=== PATIENT | female | born 1960 | race Hispanic/Latino ===

== ENCOUNTER → 2024-09-28 | Outpatient (CLI) | payer OTHER, BC ==
[~2024-09-28] MED LIST: ASPI-1197 PO; ATOR-2 PO; AURYXIA PO; CARV12.511 PO; CLOP75TA32 PO; DOCU-116 PO; DULO60CA64 PO; FERS325 PO; FOLI0.8T22 PO; FURO80TA3 PO; GABA300C PO; INSU100C6 SQ; INSU100V12 SQ; ISOS120T14 PO; LORA10TA7 PO; METO10TA8 PO; NIFE-39 PO; NITR0.4T50 SL; ONDA-243 PO; SACU1TAB7 PO; SPIR100T5 PO
[2024-09-28 15:39] LABS: ALBUMIN 2.6 g/dL (3.5-5.0); BILIRUBIN,TOTAL 0.3 mg/dL (0.2-1.0); POTASSIUM 4.1 mmol/L (3.5-5.1); TOTAL PROTEIN, SERUM 7.3 g/dL (6.0-8.3)
[2024-09-28 15:40] LABS: CREATININE 10.2 mg/dL (0.5-1.0)
== END | disposition home or self-care (01) ==
LOC: LAB 14:19
PROVIDERS: ATTEND Internal Medicine Cardiovascular Disease
DX: R07.89 Other chest pain (principal)
CPT/HCPCS: 36415; 80053

== ENCOUNTER → 2024-09-29 | Outpatient (CLI) | payer OTHER, BC ==
[~2024-09-29] MED LIST changes: +IOHEXOL 350 MG/ML 100ML INFUS..BTL IV ONE; +metoPROLOL tartRATE 1 MG/ML 5ML VIAL IV ONE
--- NOTE | 2024-09-29 11:57 | HMCIMG ---
CT CARDIAC ANGIO W/CONT. CCTA REASON: CHEST PAIN COMPARISON: None TECHNIQUE: Images are obtained through the heart in the axial plane before and during bolus IV contrast infusion, 100 cc Omnipaque 350. 2-D and 3-D multiplanar reconstruction images were then performed. The injection had to be repeated once due to motion artifact on the first sequence, total contrast volume was 200 cc. FINDINGS: This dictation is for the noncardiac findings only. Cardiac and coronary artery findings are reported separately. Visualized portions of the lungs are clear. There is normal-appearing pulmonary interstitium. There is no hilar or mediastinal lymphadenopathy. Chest wall structures appear unremarkable. IMPRESSION: 1. Unremarkable noncardiac portions of CT cardiac angiography.
--- NOTE | 2024-10-07 15:34 | CARDIOLOGY ---
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 A dedicated, limited window, coronary imaging protocol was used, with single breath-hold, retrospective ECG gating, and automated arrhythmia rejection. 100 cc of low osmolar contrast agent: Omnipaque 350 was delivered via a 18-gauge IV catheter in the right antecubital fossa, using a power injector and followed by 60 cc of normal saline bolus as a chaser. Collimated images were reformatted at 0.5 mm intervals, and sent to an offline independent workstation for interpretation, using 3D anatomic reconstructions: Curved multiplanar reconstructions, maximum intensity projections, and multiplanar imaging. No metoprolol was administered prior to scanning due to low baseline heart rate. 0.4 mg SL nitroglycerin was given. CORONARY ARTERY DESCRIPTIONS: The coronary arteries arise in normal position. Left main coronary artery: Normal caliber vessel that trifurcates into the LAD, ramus and LCx. Near occlusive stenosis of the ostial left main. Left anterior descending coronary artery: Normal caliber vessel and gives rise to diagonal and septal branches. 90% stenosis of the proximal LAD and 90% ostial D1 stenosis. The LAD becomes PYROTECHNIST after D1 takeoff. Ramus intermedius artery: Left circumflex coronary artery: Normal caliber, nondominant and gives rise to a large OM branch. Occluded LCx. Right coronary artery: Large, dominant vessel giving rise to the PL and PDA branches. PYROTECHNIST proximal RCA. Ostial 90% PDA and 90% ostial PL. CORONARY ARTERY BYPASS GRAFT DESCRIPTIONS: Patent MCCLURE to LAD. Patent SVG to PDA. The SVG to distal LCx and the SVG to OM1 are not well visualized for luminal stenosis due to motion artifact from pacemaker device and ectopy. However, both are identified. Sherlyn Garnett MD Cardiovascular Disease [facility] SHERLYN GARNETT MD Oct 07, 2024 15:34
== END | disposition home or self-care (01) ==
LOC: CANPRECLI → RAH 08:25
PROVIDERS: ATTEND Internal Medicine Cardiovascular Disease
DX: I25.10 Atherosclerotic heart disease of native coronary artery without angina pectoris (principal); R07.89 Other chest pain
CPT/HCPCS: 75574; J3490; Q9967